=== PATIENT | female | born 1995 | race Caucasian/White ===

== ENCOUNTER 2020-11-29 16:35 | Emergency (ER) | payer OTHER ==
[~2020-11-29] VITALS: Ht 152.4 cm; Wt 57.6 kg
[2020-11-29] MEDS ORDERED: MULT-594 PO (16:55)
[2020-11-29 17:15] LABS: EOSINOPHILS # (AUTO) 0.1 K/uL (0.0-0.7); LYMPHOCYTES # (AUTO) 2.3 K/uL (20.0-40.0); MONOCYTES # (AUTO) 0.6 K/uL (2.0-10.0); RED BLOOD CELL COUNT(AUTO) 4.14 MIL/uL (3.63-4.92)
[2020-11-29 17:20] LABS: BASOPHILS % (AUTO) 0.5 % (0.0-2.0); HEMATOCRIT 37.3 % (31.2-41.9); HEMOGLOBIN 12.9 g/dL (10.9-14.3); MEAN CORPUSCULAR HEMOGLOBIN 31.2 uug (24.7-32.8); MEAN CORPUSCULAR HGB CONC 35 g/dL (32.3-35.6); MEAN CORPUSCULAR VOLUME 90.3 fL (75.5-95.3); MONOCYTES % (AUTO) 6.7 % (0.0-11.0); NEUTROPHILS # (AUTO) 5.7 K/uL (1.8-8.9); NEUTROPHILS % (AUTO) 65.8 % (38.5-71.5); WHITE BLOOD COUNT (AUTO) 8.7 K/uL (3.8-11.8)
[2020-11-29 17:22] LABS: CREATININE 0.7 mg/dL (0.6-1.3)
[2020-11-29 17:28] LABS: BILIRUBIN,DIRECT 0.1 mg/dL (0.0-0.2); BILIRUBIN,TOTAL 0.3 mg/dL (0.2-1.0); TOTAL PROTEIN, SERUM 7.1 g/dL (6.4-8.2)
[2020-11-29 17:33] LABS: PLATELET COUNT (AUTO) 36 K/uL (179-408)
[2020-11-29 18:04] LABS: EOSINOPHILS % (MANUAL) 1 % (0-8); LYMPHOCYTES % (MANUAL) 27 % (20-40); MONOCYTES % (MANUAL) 8 % (2-10); NEUTROPHILS % (MANUAL) 64 % (42-75)
--- NOTE | 2020-11-29 18:16 | NUR ---
Patient discharged to home in stable condition. Written and verbal after care instructions given. Patient verbalizes understanding of instructions. Stressed follow up or return to ER for worsening s/s.
[2020-11-29 18:17] VITALS: BP 101/60
[2020-11-29 18:17] LABS: *URINE HCG, QUAL NEGATIVE (NEGATIVE)
[2020-11-29 18:18] LABS: *BILIRUBIN,URIN NEGATIVE (NEGATIVE); *BLOOD, URINE NEGATIVE (NEGATIVE); *CLARITY,URINE SLIGHTLY CLOUDY (CLEAR); *COLOR,URINE LIGHT YELLOW (YELLOW); *KETONES,URINE NEGATIVE (NEGATIVE); *UROBILINOGEN,URINE 0.2 E.U./dl (NORMAL); LEUKOCYTE ESTERASE ,URINE TRACE (NEGATIVE); NITRITE, URINE NEGATIVE (NEGATIVE); PH,URINE 7.5 (5.0-8.0); UGLUCOSE NEGATIVE (NEGATIVE)
[2020-11-29 19:23] LABS: RBC,URINE 0-3 /HPF (0-3)
[2020-11-29 19:24] LABS: BACTERIA,URINE FEW /HPF (NONE SEEN); SQUAMOUS EPITHELIAL CELL,UR MODERATE /HPF (NONE SEEN)
== END 2020-11-29 18:18 | disposition home or self-care (01) ==
LOC: ER 16:40
DX: D69.6 Thrombocytopenia, unspecified (principal)
CPT/HCPCS: 36415; 70030-TC; 84703; 85025; 85730; 86850; 86900; 86901; 87086; A4663

== ENCOUNTER 2020-11-30 11:36 | Inpatient (IN) | payer OTHER ==
[~2020-11-30] VITALS: Ht 152.4 cm; Wt 57.6 kg
[~2020-11-30 11:36] MED LIST: MULT-594 PO
--- NOTE | 2020-11-30 12:23 | NUR ---
waiting for insurance verification. pt requesting nothing to be done unless the isurance is verified.
--- NOTE | 2020-11-30 14:31 | NUR ---
transfered pt to floor in stable condition.
--- NOTE | 2020-11-30 14:45 | NUR ---
Received patient from the emergency department, awake alert and oriented times 4. Patient is on room air and saturating well. No sign of distress noted. Patient did show bruised of different stages of healing on both her upper and lower extremities. Safety precautions are in place. Will continue to monitor.
[2020-11-30] MEDS ORDERED: ONDANSETRON 4 MG/2 ML VIAL IV PRN (15:00)
[2020-11-30] MEDS ORDERED: ACETAMINOPHEN 325 MG TABLET PO PRN (15:00)
[2020-11-30 15:24] VITALS: BP 96/54
[2020-11-30 15:53] LABS: *RHEUMATOID FACTOR SCREEN NEGATIVE (NEGATIVE)
[2020-11-30 19:00] LABS: EOSINOPHILS # (AUTO) 0.1 K/uL (0.0-0.7); LYMPHOCYTES # (AUTO) 2.3 K/uL (20.0-40.0); MONOCYTES # (AUTO) 0.6 K/uL (2.0-10.0)
[2020-11-30 19:02] LABS: BASOPHILS # (AUTO) 0.1 K/uL (0.0-8.0); BASOPHILS % (AUTO) 0.7 % (0.0-2.0); EOSINOPHILS % (AUTO) 1.1 % (0.0-7.0); HEMATOCRIT 37.5 % (31.2-41.9); LYMPHOCYTES % (AUTO) 29.8 % (20.5-51.5); MEAN CORPUSCULAR HEMOGLOBIN 31.1 uug (24.7-32.8); MEAN CORPUSCULAR HGB CONC 35 g/dL (32.3-35.6); MEAN CORPUSCULAR VOLUME 89.9 fL (75.5-95.3); MONOCYTES % (AUTO) 8.1 % (0.0-11.0); NEUTROPHILS # (AUTO) 4.7 K/uL (1.8-8.9); NEUTROPHILS % (AUTO) 60.3 % (38.5-71.5); RED BLOOD CELL COUNT(AUTO) 4.17 MIL/uL (3.63-4.92); WHITE BLOOD COUNT (AUTO) 7.7 K/uL (3.8-11.8)
[2020-11-30 19:08] LABS: PLATELET COUNT (AUTO) 36 K/uL (179-408)
--- NOTE | 2020-11-30 19:13 | NUR ---
Patient is resting in bed. No sign of distress noted. Patient will be NPO after midnight. Gave all medications as ordered. Safety precautions are in place. Will endorse to oncoming nurse.
[2020-11-30 20:04] LABS: EOSINOPHILS % (MANUAL) 3 % (0-8); LYMPHOCYTES % (MANUAL) 30 % (20-40); MONOCYTES % (MANUAL) 7 % (2-10); NEUTROPHILS % (MANUAL) 60 % (42-75)
--- NOTE | 2020-11-30 20:12 | NUR ---
dr. godfrey aware of patients critical value for platelet 36 and BP 88/44, HR 88 no new orders received.
[2020-11-30 20:38] VITALS: BP 89/51
[2020-11-30] MEDS: methylPREDNISolone SOD SUCC 125 MG/2 ML VIAL IV SCH (21:17)
[2020-11-30 21:22] VITALS: BP 90/56
[2020-12-01 00:40] VITALS: BP 94/60
[2020-12-01 06:43] LABS: BASOPHILS % (AUTO) 0.1 % (0.0-2.0); HEMATOCRIT 37.5 % (31.2-41.9); HEMOGLOBIN 12.9 g/dL (10.9-14.3); LYMPHOCYTES # (AUTO) 0.8 K/uL (20.0-40.0); LYMPHOCYTES % (AUTO) 9.1 % (20.5-51.5); MEAN CORPUSCULAR HEMOGLOBIN 31.1 uug (24.7-32.8); MEAN CORPUSCULAR HGB CONC 34 g/dL (32.3-35.6); MEAN CORPUSCULAR VOLUME 90.3 fL (75.5-95.3); MONOCYTES # (AUTO) 0.1 K/uL (2.0-10.0); MONOCYTES % (AUTO) 1.4 % (0.0-11.0); NEUTROPHILS # (AUTO) 7.8 K/uL (1.8-8.9); NEUTROPHILS % (AUTO) 89.4 % (38.5-71.5); RED BLOOD CELL COUNT(AUTO) 4.16 MIL/uL (3.63-4.92); WHITE BLOOD COUNT (AUTO) 8.8 K/uL (3.8-11.8)
[2020-12-01 06:48] VITALS: BP 89/48
[2020-12-01 06:49] LABS: PLATELET COUNT (AUTO) 46 K/uL (179-408)
--- NOTE | 2020-12-01 06:53 | NUR ---
WILL ENDORSE TO MORNING NURSE TO INFORM DR. GILMORE OF PATIENTS BP AND PLT VALUE
[2020-12-01 07:04] LABS: BILIRUBIN,TOTAL 0.6 mg/dL (0.2-1.0); CREATININE 0.8 mg/dL (0.6-1.3); PHOSPHOROUS 3.3 mg/dL (2.5-4.9); POTASSIUM 4.2 mmol/L (3.5-5.1); TOTAL PROTEIN, SERUM 7.2 g/dL (6.4-8.2)
[2020-12-01 07:12] LABS: LYMPHOCYTES % (MANUAL) 9 % (20-40); MONOCYTES % (MANUAL) 2 % (2-10); NEUTROPHILS % (MANUAL) 89 % (42-75)
--- NOTE | 2020-12-01 07:30 | NUR ---
received pt resting in bed. awake alert and oriented x4. Pt is on RA, no signs of distress noted. IV site on the right AC 20g, patent. Bed in low and locked position, safety precautions in place. will continue to monitor.
[2020-12-01] MEDS: MULTIVITAMINS,THERAPEUTIC TABLET PO SCH (10:08)
[2020-12-01] MEDS: methylPREDNISolone SOD SUCC 125 MG/2 ML VIAL IV SCH (10:09)
[2020-12-01 11:15] VITALS: BP 92/52
[2020-12-01 16:36] VITALS: BP 98/58
--- NOTE | 2020-12-01 18:18 | NUR ---
pt resting in bed, awake alert and oriented x4. IV on the right AC 20g. Patient is on room air. Bed in low and locked position, safety precautions in place. Will endorse to oncoming nurse.
--- NOTE | 2020-12-01 19:00 | NUR ---
recd pt in bed,resting quietly, no distress noted.alert ,oriented x4, verbally responsive.
[2020-12-01 20:03] VITALS: BP 102/58
[2020-12-01 20:52] VITALS: BP 102/58
[2020-12-02 04:46] VITALS: BP 82/38
--- NOTE | 2020-12-02 05:52 | NUR ---
UNEVENTFUL NOC, RESTED FAIRLY WELL.
[2020-12-02 06:39] LABS: BASOPHILS % (AUTO) 0.1 % (0.0-2.0); EOSINOPHILS % (AUTO) 0.1 % (0.0-7.0); HEMATOCRIT 34.1 % (31.2-41.9); HEMOGLOBIN 11.9 g/dL (10.9-14.3); LYMPHOCYTES # (AUTO) 2.2 K/uL (20.0-40.0); LYMPHOCYTES % (AUTO) 15.8 % (20.5-51.5); MEAN CORPUSCULAR HEMOGLOBIN 31.4 uug (24.7-32.8); MEAN CORPUSCULAR HGB CONC 35 g/dL (32.3-35.6); MEAN CORPUSCULAR VOLUME 89.5 fL (75.5-95.3); MONOCYTES # (AUTO) 1.1 K/uL (2.0-10.0); MONOCYTES % (AUTO) 7.5 % (0.0-11.0); NEUTROPHILS # (AUTO) 10.7 K/uL (1.8-8.9); NEUTROPHILS % (AUTO) 76.5 % (38.5-71.5); RED BLOOD CELL COUNT(AUTO) 3.81 MIL/uL (3.63-4.92); WHITE BLOOD COUNT (AUTO) 13.9 K/uL (3.8-11.8)
[2020-12-02 06:49] LABS: PLATELET COUNT (AUTO) 94 K/uL (179-408)
[2020-12-02] MEDS: MULTIVITAMINS,THERAPEUTIC TABLET PO SCH (07:59)
[2020-12-02] MEDS: methylPREDNISolone SOD SUCC 125 MG/2 ML VIAL IV SCH (08:26)
[2020-12-02 11:26] VITALS: BP 81/38
[2020-12-02] MEDS ORDERED: PRED50TA PO (15:56)
--- NOTE | 2020-12-02 17:08 | NUR ---
dc orders received noted and carried out,geraldine hernandezlock per md orders.pt said she will follow up with her pcp in one week.pt left the facility via private car in stable condition
[2020-12-03 03:06] LABS: CMV, IgG 2.4 U/mL (0.00-0.59)
== END 2020-12-02 17:04 | disposition home or self-care (01) | DRG 661 ==
LOC: ER 11:36 → TRANSITION 14:07 → MEDSURG3 14:17
PROVIDERS: ADMIT Internal Medicine; ATTEND Internal Medicine
DX: D69.3 Immune thrombocytopenic purpura (principal); Z20.822 Contact with and (suspected) exposure to COVID-19
CPT/HCPCS: 36415; 70030-TC; 76700; 83735; 84100; 85025; 86038; 86140; 86430; 86644; 86645; 86706; 86803; 87340; 87806; A4663; G0378; J2930; U0003